=== PATIENT | female | born 1965 | race Caucasian/White ===

== ENCOUNTER 2021-03-01 15:47 | Emergency (ER) | payer MEDICAID, OTHER ==
[~2021-03-01] VITALS: Ht 162.6 cm; Wt 53.5 kg
[~2021-03-01 15:47] MED LIST: LORA-259 PO; ZOLP10TA2 PO
[2021-03-01 16:20] VITALS: BP 113/71
--- NOTE | 2021-03-01 16:56 | NUR ---
Patient eloped from facility. ER MD notified.
[2021-03-01 17:09] LABS: BILIRUBIN,URINE SMALL (NEGATIVE); COLOR,URINE YELLOW (YELLOW); LEUKOCYTE ESTERASE ,URINE Negative (NEGATIVE); NITRITE, URINE Negative (NEGATIVE); PH,URINE 5.5 (5.0-8.0); PROTEIN,URINE Negative (NEGATIVE); UGLUCOSE Negative (NEGATIVE); UROBILINOGEN,URINE 0.2 EU/dL (0.2)
[2021-03-01] MEDS ORDERED: PHEN-704 PO (17:21)
[2021-03-01] MEDS ORDERED: DOXY-326 PO (17:21)
== END 2021-03-01 17:37 | disposition home or self-care (01) ==
LOC: ER 15:55
DX: R30.0 Dysuria (principal); L02.01 Cutaneous abscess of face; F41.9 Anxiety disorder, unspecified; Z90.89 Acquired absence of other organs; Z88.2 Allergy status to sulfonamides; Z88.1 Allergy status to other antibiotic agents; Z79.899 Other long term (current) drug therapy

== ENCOUNTER 2021-03-03 16:23 | Emergency (ER) | payer OTHER ==
[~2021-03-03] VITALS: Ht 162.6 cm; Wt 53.5 kg
[~2021-03-03 16:23] MED LIST changes: +DOXY-326 PO; +PHEN-704 PO
[2021-03-03 16:31] VITALS: BP 107/67
[2021-03-03] MEDS ORDERED: LIDOCAINE /MPF 1% VIAL 5 ML VIAL ONE (16:43)
--- NOTE | 2021-03-03 16:43 | NUR ---
PT SEEN AND EXAMINED BY ALOK MOHAN.
[2021-03-03] MEDS: LIDOCAINE 1% INJ 50 ML MDV IJ ONE (16:56)
--- NOTE | 2021-03-03 17:10 | NUR ---
I &D DONE BY ALOK MOHAN.
[2021-03-03] MEDS ORDERED: AMOX-430 PO (17:13)
[2021-03-03] MEDS ORDERED: AMOX/CLAVULANATE 875 MG TABLET ONE (17:16)
--- NOTE | 2021-03-03 17:24 | NUR ---
Patient discharged to home in stable condition. Written and verbal after care instructions given. Patient verbalizes understanding of instruction.
[2021-03-03] MEDS ORDERED: AMOX/CLAVULANATE 875 MG TABLET PO ONE (17:30)
== END 2021-03-03 17:27 | disposition home or self-care (01) ==
LOC: ER 16:33
DX: L02.01 Cutaneous abscess of face (principal); K13.0 Diseases of lips; F41.9 Anxiety disorder, unspecified; Z90.89 Acquired absence of other organs; Z88.2 Allergy status to sulfonamides; Z88.1 Allergy status to other antibiotic agents; Z79.899 Other long term (current) drug therapy
CPT/HCPCS: 10060; 99283; J3490

== ENCOUNTER 2021-07-05 17:58 | Emergency (ER) | payer OTHER ==
[~2021-07-05] VITALS: Ht 162.6 cm; Wt 49.9 kg
[~2021-07-05 17:58] MED LIST changes: +AMOX-430 PO
[2021-07-05 18:04] VITALS: BP 113/70
[2021-07-05] MEDS ORDERED: ERYT3.5O9 RIGHTEYE (18:16)
[2021-07-05] MEDS ORDERED: TRIA15CR2 TP (18:16)
[2021-07-05] MEDS ORDERED: CLIN300C12 PO (18:16)
--- NOTE | 2021-07-05 18:25 | NUR ---
URINE SENT TO LAB
[2021-07-05 18:42] LABS: BILIRUBIN,URINE NEGATIVE (NEGATIVE); COLOR,URINE YELLOW (YELLOW); LEUKOCYTE ESTERASE ,URINE SMALL (NEGATIVE); NITRITE, URINE POSITIVE (NEGATIVE); PROTEIN,URINE NEGATIVE (NEGATIVE); UGLUCOSE NEGATIVE (NEGATIVE); UROBILINOGEN,URINE 0.2 EU/dL (0.2)
[2021-07-05] MEDS ORDERED: CEPH500T PO (18:49)
[2021-07-05 18:50] LABS: BACTERIA,URINE 2+ /HPF (None Seen)
--- NOTE | 2021-07-05 18:56 | NUR ---
Patient discharged to home in stable condition. Written and verbal after care instructions given. Patient verbalizes understanding of instruction.
== END 2021-07-05 18:58 | disposition home or self-care (01) ==
LOC: ER 18:13
DX: L03.114 Cellulitis of left upper limb (principal); N39.0 Urinary tract infection, site not specified; H57.89 Other specified disorders of eye and adnexa; F41.9 Anxiety disorder, unspecified; Z90.89 Acquired absence of other organs; Z88.2 Allergy status to sulfonamides; Z88.1 Allergy status to other antibiotic agents; Z60.2 Problems related to living alone; Z79.899 Other long term (current) drug therapy
CPT/HCPCS: 81001; 87086-TC

== ENCOUNTER 2023-09-09 17:38 | Emergency (ER) | payer OTHER ==
[~2023-09-09] VITALS: Ht 162.6 cm; Wt 52.2 kg
[~2023-09-09 17:38] MED LIST changes: +CEPH500T PO; +CLIN300C12 PO; +ERYT3.5O9 RIGHTEYE; +TRIA15CR2 TP
[2023-09-09 18:47] VITALS: BP 109/71; TEMP 98.2; O2SAT 99
[2023-09-09] MEDS ORDERED: PRED50TA PO (19:12)
[2023-09-09] MEDS ORDERED: diphenhydrAMINE HCL 25 MG CAPSULE PO ONE (19:30)
[2023-09-09] MEDS ORDERED: diphenhydrAMINE HCL 25 MG CAPSULE ONE (19:30)
[2023-09-09] MEDS ORDERED: predniSONE 20 MG TABLET ONE (19:30)
[2023-09-09] MEDS ORDERED: FAMOTIDINE (20 MG) 20 MG TABLET PO ONE (19:30)
[2023-09-09] MEDS ORDERED: predniSONE 50 MG TABLET PO ONE (19:30)
[2023-09-09] MEDS ORDERED: FAMOTIDINE (20 MG) 20 MG TABLET ONE (19:31)
== END 2023-09-09 19:40 | disposition home or self-care (01) ==
LOC: ER 17:46
DX: R21 Rash and other nonspecific skin eruption (principal); F41.9 Anxiety disorder, unspecified; Z79.899 Other long term (current) drug therapy; Z60.2 Problems related to living alone; Z88.2 Allergy status to sulfonamides
CPT/HCPCS: 99284; Q0163; J7512

== ENCOUNTER → 2023-09-13 | Emergency (ER) | payer OTHER ==
[~2023-09-13] VITALS: Ht 162.6 cm; Wt 57.6 kg
[~2023-09-13] MED LIST changes: +DIPH25TA25 PO; +PRED50TA PO; +TRIA15OI2 TP
[2023-09-13 18:47] VITALS: BP 124/72; TEMP 98; O2SAT 99
== END | disposition home or self-care (01) ==
LOC: ER 17:28
DX: R21 Rash and other nonspecific skin eruption (principal); F41.9 Anxiety disorder, unspecified; Z90.89 Acquired absence of other organs; Z88.2 Allergy status to sulfonamides; Z88.8 Allergy status to other drugs, medicaments and biological substances; Z60.2 Problems related to living alone; Z79.899 Other long term (current) drug therapy

== ENCOUNTER 2023-09-24 12:04 | Emergency (ER) | payer OTHER ==
[~2023-09-24] VITALS: Ht 162.6 cm; Wt 52.2 kg
[2023-09-24 12:33] VITALS: BP 131/72; TEMP 98.4
[2023-09-24] MEDS ORDERED: KETOROLAC TROMETHAMINE 15 MG/ML VIAL IM ONE (13:00)
[2023-09-24] MEDS ORDERED: BENZONATATE 100 MG CAPSULE PO PRN (13:00)
[2023-09-24] MEDS ORDERED: BENZONATATE 100 MG CAPSULE PO ONE (13:20)
[2023-09-24] MEDS ORDERED: KETOROLAC TROMETHAMINE 15 MG/ML VIAL ONE (13:20)
[2023-09-24] MEDS ORDERED: IBUP-1955 PO ×2 (14:37→14:44)
[2023-09-24] MEDS ORDERED: BENZ-13 PO ×2 (14:37→14:44)
[2023-09-24 14:50] VITALS: O2SAT 98
== END 2023-09-24 14:51 | disposition home or self-care (01) ==
LOC: ER 12:10
DX: J06.9 Acute upper respiratory infection, unspecified (principal); R05.9 Cough, unspecified; R09.81 Nasal congestion; F41.9 Anxiety disorder, unspecified; Z90.89 Acquired absence of other organs; Z88.2 Allergy status to sulfonamides; Z88.8 Allergy status to other drugs, medicaments and biological substances; Z60.2 Problems related to living alone; Z79.899 Other long term (current) drug therapy; Z20.822 Contact with and (suspected) exposure to COVID-19
CPT/HCPCS: 99284; 71045; 87426; 96372; 87804 ×2; J1885